=== PATIENT | female | born 1940 ===

== ENCOUNTER 2023-08-02 07:20 | Emergency (ER) | payer OTHER, SELFPAY ==
[2023-08-02] MEDS ORDERED: HYDROMORPHONE HCL 1 MG/ML INJ ONE (08:25)
[2023-08-02] MEDS ORDERED: KETOROLAC 30 MG/ML INJ ONE (08:25)
--- NOTE | 2023-08-02 08:26 | RAD REPORT ---
EXAM DESCRIPTION: CT - Spine Lumbar Wo Con - 08/02/2023 8:18 am CLINICAL HISTORY: Radiculopathy. PAIN COMPARISON: No comparisons TECHNIQUE: Axial noncontrast CT imaging of the lumbar spine was performed with coronal and sagittal re-formatted images. All CT scans are performed using dose optimization technique as appropriate and may include automated exposure control or mA/KV adjustment according to patient size. FINDINGS: Prominent diffuse osteopenia. Moderate degenerative levoscoliosis lumbar spine with multil evel vacuum disc degeneration noted at L3-4, L4-5 and L5-S1. Mild compression deformity affects L1 with approximate 10% loss vertebral body height this is probabl y acute or subacute in timeframe. There is mild thickening of the paraspinal tissues at this level wi th mild narrowing of the central canal posteriorly. Calcifications in the pancreas could indicate chronic pancreatitis. Bilateral renal cysts. Significan t stool is retained in the colon with diverticulosis of the sigmoid colon present. IMPRESSION: Mild acute or subacute compression fracture affects the L1 vertebral body. Vertebral bod y height loss is estimated at 10-15%. There is mild central canal narrowing caused by this along with mild paraspinal soft tissue thickenin g.
--- NOTE | 2023-08-02 09:01 | EDPHYS ---
Physician Documentation [facility] Name: Brett Paz Age: 83 yrs Sex: Female : 1940 Arrival Date: 08/02/2023 Time: 07:20 Bed 2 Private MD: ED Physician Avery Muñoz HPI: 08/01 07:53 This 83 yrs old Unknown Female presents to ER via Wheelchair with complaints of Back sp3 Pain. 07:53 83-year-old female with history of diabetes, hypertension, kidney disease, now presents sp3 to the ED with chief complaint right-sided low back pain off and on for several weeks. Pain is worse when she moves. She denies any fall or trauma. She is 6 weeks post left knee replacement which she has been going to therapy and is having no issues. She denies any chest pain, upper back pain, shortness of breath, prolonged immobilization, recent travel or any prior history of DVT or PE. Patient also denies any urinary symptoms, [employer] symptoms, GI symptoms including vomiting and diarrhea and constipation. ROS otherwise negative.. Historical: - Allergies: 07:43 No Known Allergies; ap3 - PMHx: 07:43 Diabetes mellitus; Hypertensive disorder; Kidney disease; Hypothyroidism; ap3 - Immunization history:: Adult Immunizations. - Infectious Disease History:: Denies. - Social history:: Smoking status: Patient denies any tobacco usage or history of. ROS: 07:54 Constitutional: Negative for fever, chills, and weight loss, Eyes: Negative for injury, sp3 pain, redness, and discharge, ENT: Negative for injury, pain, and discharge, Neck: Negative for injury, pain, and swelling, Cardiovascular: Negative for chest pain, palpitations, and edema, Respiratory: Negative for shortness of breath, cough, wheezing, and pleuritic chest pain, Abdomen/GI: Negative for abdominal pain, nausea, vomiting, diarrhea, and constipation, : Negative for injury, bleeding, discharge, and swelling, Skin: Negative for injury, rash, and discoloration, Neuro: Negative for headache, weakness, numbness, tingling, and seizure, Psych: Negative for depression, anxiety, suicide ideation, homicidal ideation, and hallucinations, Allergy/Immunology: Negative for hives, rash, and allergies, Endocrine: Negative for neck swelling, polydipsia, polyuria, polyphagia, and marked weight changes, Hematologic/Lymphatic: Negative for swollen nodes, abnormal bleeding, and unusual bruising, 07:54 All other systems are negative, Exam: 07:54 Constitutional: This is a well developed, well nourished patient who is awake, alert, sp3 and in no acute distress. Head/Face: Normocephalic, atraumatic. Eyes: Pupils equal round and reactive to light, extra-ocular motions intact. Lids and lashes normal. Conjunctiva and sclera are non-icteric and not injected. Cornea within normal limits. Periorbital areas with no swelling, redness, or edema. ENT: Nares patent. No nasal discharge, no septal abnormalities noted. External auditory canals are clear. Oropharynx with no redness, swelling, or masses, exudates, or evidence of obstruction, uvula midline. Mucous membranes moist. Neck: Trachea midline, no thyromegaly or masses palpated, and no cervical lymphadenopathy. Supple, full range of motion without nuchal rigidity, or vertebral point tenderness. No Meningismus. Chest/axilla: Normal chest wall appearance and motion. Nontender with no deformity. No lesions are appreciated. Cardiovascular: Regular rate and rhythm with a normal S1 and S2. No gallops, murmurs, or rubs. Normal PMI, no JVD. No pulse deficits. Respiratory: Lungs have equal breath sounds bilaterally, clear to auscultation and percussion. No rales, rhonchi or wheezes noted. No increased work of breathing, no retractions or nasal flaring. Abdomen/GI: Soft, non-tender, with normal bowel sounds. No distension or tympany. No guarding or rebound. No evidence of tenderness throughout. Skin: Warm, dry with normal turgor. Normal color with no rashes, no lesions, and no evidence of cellulitis. Neuro: Awake and alert, GCS 15, oriented to person, place, time, and situation. Cranial nerves II-XII grossly intact. Motor strength 5/5 in all extremities. Sensory grossly intact. Cerebellar exam normal. Normal gait. Psych: Awake, alert, with orientation to person, place and time. Behavior, mood, and affect are within normal limits. 07:54 Musculoskeletal/extremity: Mild pain to palpation on the right lower back however pain is worse when she sits up. No pain on straight leg raise. Distal neurovascular exam is normal.. Vital Signs: 07:41 BP 175 / 73; Pulse 65; Resp 18; Temp 98.3(O); Pulse Ox 100% ; Weight 83.91 kg; Height 5 ap3 ft. 7 in. ; Pain 10/10; 07:41 Body Mass Index 28.97 (83.91 kg, 170.18 cm) ap3 07:41 Pain Scale: Adult ap3 MDM: 07:38 Patient medically screened. sp3 07:55 Data reviewed: vital signs, nurses notes, lab test result(s), radiologic studies. ED sp3 course: 83-year-old female with right lower back pain. Patient is requesting MRI however did not have that capability currently. Will obtain lumbosacral CT scan and administer Dilaudid and ketorolac IM. Consider disc disease versus arthritis versus muscle strain. I am not highly suspicious for pathology including kidney stone, UTI/pyelonephritis spectrum, [employer] pathology, GI pathology, aortic AAA or dissection, retroperitoneal pathology, or any other concerning or critical process at this time. If workup negative, will discharge patient home to PCP for outpatient MRI. Patient is already taking hydrocodone, muscle relaxers and NSAIDs. I have also recommended outpatient spine physician consultation.. 08:58 ED course: CT demonstrates compression fracture with 15% loss of height and L1. sp3 Surrounding inflammation is present. I explained to the patient and family that orthopedic consultation is necessary and provided resources. Patient already has hydrocodone at home. I will add on prednisone. Outpatient MRI is also suggested. Further per orthopedics and/or spine.. 08/01 07:52 Order name: CT Lumbar Spine Wo Con; Complete Time: 08:31 sp3 Administered Medications: 08:15 Drug: HYDROmorphone IM 1 mg IM once Route: IM; Site: right deltoid; rs5 08:15 Drug: Ketorolac IM 15 mg IM once Route: IM; Site: left deltoid; rs5 Disposition Summary: 08/02/23 09:00 Discharge Ordered Notes: Location: Home sp3 Condition: Stable sp3 Diagnosis - L1 compression fracture sp3 Discharge Instructions: - Discharge Summary Sheet sp3 - Spinal Compression Fracture sp3 Forms: - Medication Reconciliation Form sp3 - Antibiotic Education sp3 - Prescription Opioid Use sp3 - Patient Portal Instructions sp3 - Leadership Thank You Letter sp3 Prescriptions: - Prednisone 20 mg Oral Tablet - take 2 tablets ORAL route once daily for 5 days; 10 tablet; Refills: 0, Product sp3 Selection Permitted Signatures: Dispatcher [employer] EDMS Beba Lacey RN RN ap3 Franko Asher RN RN ll1 Avery Muñoz MD MD sp3 Barak Hardwick RN RN rs5 Corrections: (The following items were deleted from the chart) 07:52 07:52 Spine Lumbar Wo Con+CT.RAD.BRZ ordered. EDMS EDMS 07:52 07:52 Urinalysis W/Microscopic+U.LAB.BRZ ordered. EDMS EDMS
--- NOTE | 2023-08-02 09:01 | ER ---
Nurse's Notes [facility] Name: Brett Paz Age: 83 yrs Sex: Female : 1940 Arrival Date: 08/02/2023 Time: 07:20 Bed 2 Private MD: Diagnosis: L1 compression fracture Presentation: 08/01 07:41 Chief complaint: Patient states: she had a left knee replacement approx 6 weeks ago, ap3 and started having lower back pain approx 2 weeks ago. patient reports she has completed her physical therapy. patient states her pain is currently a 10/10 on the pain scale at this time. Coronavirus screen: At this time, the client does not indicate any symptoms associated with coronavirus-19. Ebola Screen: No symptoms or risks identified at this time. Initial Sepsis Screen: Does the patient meet any 2 criteria? No. Patient's initial sepsis screen is negative. Does the patient have a suspected source of infection? No. Patient's initial sepsis screen is negative. Risk Assessment: Do you want to hurt yourself or someone else? Patient reports no desire to harm self or others. Onset of symptoms was July 19, 2023. 07:41 Method Of Arrival: Wheelchair ap3 07:41 Acuity: PRADIP 3 ap3 Triage Assessment: 07:44 General: Appears uncomfortable, Behavior is cooperative, appropriate for age. Pain: ap3 Complains of pain in back Pain currently is 10 out of 10 on a pain scale. at worst was 10 out of 10 on a pain scale. Neuro: Level of Consciousness is awake, alert, obeys commands, Oriented to person, place, time, situation. Historical: - Allergies: 07:43 No Known Allergies; ap3 - PMHx: 07:43 Diabetes mellitus; Hypertensive disorder; Kidney disease; Hypothyroidism; ap3 - Immunization history:: Adult Immunizations. - Infectious Disease History:: Denies. - Social history:: Smoking status: Patient denies any tobacco usage or history of. Screenin:44 Abuse screen: Denies threats or abuse. Nutritional screening: No deficits noted. ap3 Tuberculosis screening: No symptoms or risk factors identified. Vital Signs: 07:41 BP 175 / 73; Pulse 65; Resp 18; Temp 98.3(O); Pulse Ox 100% ; Weight 83.91 kg; Height 5 ap3 ft. 7 in. ; Pain 12/27; 07:41 Body Mass Index 28.97 (83.91 kg, 170.18 cm) ap3 07:41 Pain Scale: Adult ap3 ED Course: 07:25 Patient arrived in ED. mg5 07:32 Avery Muñoz MD is Attending Physician. sp3 07:34 Arm band placed on Patient placed in an exam room, on a stretcher. ll1 07:41 Beba Lacey RN is Primary Nurse. ap3 07:43 Triage completed. ap3 07:58 Patient has correct armband on for positive identification. Placed in gown. Bed in low ap3 position. Call light in reach. Side rails up X 1. Adult w/ patient. Pulse ox on. NIBP on. 08:19 CT Lumbar Spine Wo Con In Process Unspecified. EDMS 09:00 Mason Mendoza MD is Referral Physician. sp3 Administered Medications: 08:15 Drug: HYDROmorphone IM 1 mg IM once Route: IM; Site: right deltoid; rs5 08:15 Drug: Ketorolac IM 15 mg IM once Route: IM; Site: left deltoid; rs5 Outcome: 09:00 Discharge ordered by . sp3 09:49 Patient left the ED. rs5 Signatures: Dispatcher [employer] EDMS Beba Lacey RN RN ap3 Franko Asher RN RN ll1 Avery Muñoz MD MD sp3 Barak Hardwick RN RN rs5 Chandrika Tavarez mg5
[2023-08-02 10:10] VITALS: BP 112/71; TEMP 97.3; O2SAT 99
== END 2023-08-02 09:49 | disposition home or self-care (01) ==
LOC: ER 07:20
DX: S32.019A Unspecified fracture of first lumbar vertebra, initial encounter for closed fracture (principal); Z96.652 Presence of left artificial knee joint
CPT/HCPCS: 72131; J1170